=== PATIENT | female | born 1970 | race Caucasian/White ===

== ENCOUNTER 2020-05-21 20:08 | Emergency (ER) | payer OTHER ==
--- NOTE | 2020-05-21 20:14 | PDOC ---
Rapid Medical Evaluation Time Seen by Provider: 05/21/20 20:12 Medical Evaluation: Allergies Allergy/AdvReac Type Severity Reaction Status Date / Time doxycycline Allergy Verified 12/25/13 07:06 hydromorphone HCl Allergy Verified 12/25/13 07:06 [From Dilaudid] latex Allergy Verified 12/25/13 07:06 levofloxacin [From Levaquin] Allergy Verified 12/25/13 07:06 Penicillins Allergy Verified 12/25/13 07:06 shellfish derived Allergy Verified 12/25/13 07:06 sulfamethoxazole Allergy Verified 12/25/13 07:06 [From Bactrim] trimethoprim [From Bactrim] Allergy Verified 12/25/13 07:06 05/21/20 20:12 49 year old female complaining of nose pain. 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 PE: Erythema to tip of nose Plan: Pt to precede to ED for further eval
[2020-05-21 20:17] VITALS: BP 119/82; PULSE 104; TEMP 98.7; BMI 43.4
--- OUTSIDE RECORDS SUMMARY | 2020-05-21 20:21 | XMS ---
:1970 Author Organization [facility] Support Name Relationship Address Phone [facility] [address] [place] [address] MEGAN LAUREANO BROTHER [address] [place] [address] Re-disclosure Warning The records that you are about to access may contain information from federally- assisted alcohol or drug abuse programs. If such information is present, then the following federally mandated warning applies: This information has been disclosed to you from records protected by federal confidentiality rules (42 CFR part 2). The federal rules prohibit you from making any further disclosure of this information unless further disclosure is expressly permitted by the written consent of the person to whom it pertains or as otherwise permitted by 42 CFR part 2. A general authorization for the release of medical or other information is NOT sufficient for this purpose. The Federal rules restrict any use of the information to criminally investigate or prosecute any alcohol or drug abuse patient.The records that you are about to access may contain highly sensitive health information, the redisclosure of which is protected by Article 27-F of the [facility] Public Health law. If you continue you may haveaccess to information: Regarding HIV / AIDS; Provided by facilities licensed or operated by the [facility] Office of Mental Health; or Provided by the [facility] Office for People With Developmental Disabilities. If such information is present, then the following [facility] mandated warning applies: This information has been disclosed to you from confidential records which are protected by state law. State law prohibits you from making any further disclosure of this information without the specific written consent of the person to whom it pertains, or as otherwise permitted by law. Any unauthorized further disclosure in violation of state law may result in a fine or snf sentence or both. A general authorization for the release of medical or other information is NOT sufficient authorization for further disclosure. Insurance Providers Payer name Policy type Policy ID Covered Covered republican's Policy P mirza / Coverage republican ID relationship to Montiel Inf ormation type montiel LOCAL [id number] - [id number] [facility] Results ID Date Data Source [id number] 04/20/2020 11:19:00 AM EDT [facility] Name Value Range Interpretation Code Description Data Corinne rce(s) Supporting Document(s ) SARS-CoV-2 [facility] RNA [facility] Ql LULU+probe This lab was ordered by [facility] reported by [facility]. ID Date Data Source [id number] 11/07/2019 12:55:00 PM EDT [facility] Name Value Range Interpretation Description Data Sup porting Code Source(s) Document(s ) SARS [facility] CORONAVIRUS 2 RNA This lab was ordered by [facility] and reported by [facility]. Procedure
--- NOTE | 2020-05-21 20:49 | PDOC ---
History of Present Illness - General Chief Complaint: Pain Stated Complaint: NOSE INFECTION Time Seen by Provider: 05/21/20 20:12 - History of Present Illness Initial Comments: 05/21/20 20:46 49-year-old female multiple medication allergies complains of nasal irritation x2 days. She attributed this irritation to her and 95 mesh she wears at work. She also complains of upper lip pain. Chills and night sweats no fever Past History - Medical History Allergies/Adverse Reactions: Allergies Allergy/AdvReac Type Severity Reaction Status Date / Time doxycycline Allergy Verified 12/25/13 07:06 hydromorphone HCl Allergy Verified 12/25/13 07:06 [From Dilaudid] latex Allergy Verified 12/25/13 07:06 levofloxacin [From Levaquin] Allergy Verified 12/25/13 07:06 Penicillins Allergy Verified 12/25/13 07:06 shellfish derived Allergy Verified 12/25/13 07:06 sulfamethoxazole Allergy Verified 12/25/13 07:06 [From Bactrim] trimethoprim [From Bactrim] Allergy Verified 12/25/13 07:06 Home Medications: Ambulatory Orders Ibuprofen [Motrin -] 800 mg PO Q6H PRN 12/25/13 Methylergonovine Maleate [Methergine] 0.2 mg PO TID #9 tablet 12/25/13 Nitrofurantoin Monohyd/M-Cryst [Macrobid -] 100 mg PO BID #14 capsule 12/25/13 Albuterol Sulfate Inhaler - [Ventolin HFA Inhaler -] 1 - 2 inh PO Q4H PRN #1 inhaler 11/06/19 Azithromycin [Zithromax 250mg Tablets -] 250 mg PO UTDICT #6 tab 11/06/19 Cephalexin [Keflex] 500 mg PO QID #40 capsule 05/21/20 - Reproductive History Is Patient Now?: No (#): 2 Para: 1 Cervical CA: No Dysfunctional Uterine Bleeding: No Ectopic : No Endometrial CA: No Polycystic Ovaries: No Therapeutic (s) & number: No Tubal Ligation: No Spontaneous : 0 - Psycho-Social/Smoking History Smoking History: Never smoked - Substance Abuse Hx (Audit-C & DAST Scrn) How often the patient has a drink containing alcohol: Never Score: In Men: 4 or > Positive; In Women: 3 or > Positive: 0 Screen Result (Pos requires Nsg. Audit-10AR): Negative Review of Systems - Review of Systems Constitutional: Yes: Chills, Malaise, Night Sweats. No: Fever *Physical Exam - Vital Signs Last Vital Signs Temp Pulse Resp BP Pulse Ox 98.7 F 104 H 20 119/82 100 05/21/20 20:11 05/21/20 20:11 05/21/20 20:11 05/21/20 20:11 05/21/20 20:11 - Physical Exam 05/21/20 20:47 The tip of the nose is erythemic with mild warmth no appreciable induration. There is sensitivity. Medical Decision Making - Medical Decision Making 05/21/20 20:47 We will treat for cellulitis. Patient states she has a penicillin allergy listed however she is able to take it because she was desensitized. I will give her Keflex. She is unable to take Bactrim or clindamycin I will have her follow-up with dermatitis with instructions to follow-up in 1 to 2 days or return to the emergency room for a recheck should she not get an appointment within 48 hours. Return sooner if problems develop. I have reviewed the pathophysiology with the patient. They are in agreement with the treatment plan all questions were answered to their satisfaction. Understanding for follow-up without fail was also conveyed to the patient. Again they are in agreement. Discharge - Discharge Information Problems reviewed: Yes Clinical Impression/Diagnosis: Cellulitis of nasal tip Condition: Stable Disposition: HOME - Admission No - Additional Discharge Information Prescriptions: Cephalexin [Keflex] 500 mg PO QID #40 capsule - Follow up/Referral Referrals: Quita Lema [Primary Care Provider] - Yanira Gonzales MD [Staff Physician] - - Patient Discharge Instructions Additional Instructions: Follow-up with both dermatology as well as your primary care physician within the next 1 to 2 days for further evaluation and treatment options. Should you not be able to get an appointment with either dermatology or your primary care physician your nose needs needs to be rechecked within the next 48 hours. Return to the emergency room should you not be able to get an appointment in 48 hours sooner if problems develop. Please take the Keflex as prescribed. Do not apply any cream to the area. - Post Discharge Activity
== END 2020-05-21 21:32 | disposition home or self-care (01) ==
LOC: JER 20:08 → JERFT 20:08
DX: L03.211 Cellulitis of face (principal)
CPT/HCPCS: 99282-25

== ENCOUNTER 2021-05-28 21:07 | Emergency (ER) | payer OTHER ==
[2021-05-28 21:13] VITALS: BP 131/83; PULSE 100; TEMP 98; BMI 44.4
[2021-05-28] MEDS ORDERED: traMADol HCL 50 MG TABLET ONE (22:01)
[2021-05-28] MEDS ORDERED: traMADol HCL 50 MG TABLET PO ONE (22:01)
== END 2021-05-29 00:11 | disposition home or self-care (01) ==
LOC: JERFT 21:07
DX: M13.0 Polyarthritis, unspecified (principal)
CPT/HCPCS: 73030-TC-RT-FY; 73562-TC-LT-FY; 73562-TC-RT-FY; 99285-25

== ENCOUNTER 2021-09-02 04:18 | Day surgery (SDC) | payer OTHER ==
[2021-08-29 11:06] VITALS: BMI 43.4
[2021-09-02] MEDS ORDERED: MIDAZOLAM HCL 2 MG/2 ML SINGLE DOSE VIAL ONE (08:47)
[2021-09-02] MEDS ORDERED: LIDOCAINE HCL/PF 2% SDV 5ML VIAL ONE (08:47)
[2021-09-02] MEDS ORDERED: DEXAMETHASONE SOD PHOSPHATE 4 MG/1 ML VIAL ONE (09:26)
[2021-09-02] MEDS ORDERED: ONDANSETRON 4 MG/2 ML VIAL ONE (09:26)
[2021-09-02] MEDS ORDERED: PROPOFOL 20 ML ONE (09:44)
[2021-09-02] MEDS ORDERED: IBUPROFEN 600 MG TABLET (FP) PO PRN (09:46)
[2021-09-02] MEDS ORDERED: oxyCODONE HCL 5 MG TABLET PO PRN (09:46)
[2021-09-02] MEDS ORDERED: ONDANSETRON 4 MG/2 ML VIAL IVPUSH PRN (09:46)
[2021-09-02] MEDS ORDERED: IBUPROFEN 800 MG/8 ML IJ IVPB PRN (09:46)
[2021-09-02] MEDS ORDERED: ALBUTEROL SO4 0.083% IH SOL 2.5 MG/3 ML VIAL.NEB. NEB ONE ×3 (09:56→11:22)
[2021-09-02] MEDS ORDERED: ELECTROLYTE-148 SOLN 1,000 ML IV SCH (10:00)
[2021-09-02] MEDS ORDERED: ALBUTEROL SO4 HFA INHALER IH ONE (10:53)
[2021-09-02] MEDS ORDERED: LACTATED RINGERS SOLUTION 1,000 ML IV SCH (11:30)
[2021-09-02 12:21] VITALS: BP 110/65; PULSE 85; TEMP 97.8
== END 2021-09-02 12:30 | disposition home or self-care (01) ==
LOC: JASU-SURG 04:18
PROVIDERS: ATTEND Obstetrics & Gynecology
PROC: 0UJD8ZZ Inspection of Uterus and Cervix, Via Natural or Artificial Opening Endoscopic (ICD-10-PCS; 2021-09-02)
PROC: 0UDB7ZX Extraction of Endometrium, Via Natural or Artificial Opening, Diagnostic (ICD-10-PCS; principal; 2021-09-02 09:00)
DX: N92.1 Excessive and frequent menstruation with irregular cycle (principal); D25.9 Leiomyoma of uterus, unspecified
CPT/HCPCS: 81025; 88305-TC; 94760